=== PATIENT | female | born 1960 | race Caucasian/White ===

== ENCOUNTER → 2017-01-02 | Outpatient (CLI) | payer OTHER | LOC: FIMAGING 13:58 | DX: Z12.31 Encounter for screening mammogram for malignant neoplasm of breast (principal) | CPT/HCPCS: G0202 ==

== ENCOUNTER 2018-04-14 16:13 | Emergency (ER) | payer SELFPAY | END 2018-04-14 16:36 | disposition left against medical advice (07) | LOC: CED 16:13 | DX: Z53.21 Procedure and treatment not carried out due to patient leaving prior to being seen by health care provider (principal) ==

== ENCOUNTER → 2018-04-23 | Emergency (ER) | payer SELFPAY ==
[2018-04-23 11:16] VITALS: BP 147/53
== END | disposition left against medical advice (07) ==
DX: R30.0 Dysuria (principal)

== ENCOUNTER → 2018-07-13 | Outpatient (CLI) | payer OTHER | LOC: FIMAGING 07:57 | PROVIDERS: ATTEND Internal Medicine Gastroenterology | DX: K31.9 Disease of stomach and duodenum, unspecified (principal) ==

== ENCOUNTER → 2018-10-02 | Outpatient (CLI) | payer SELFPAY | LOC: FIMAGING 09:50 | PROVIDERS: ATTEND Internal Medicine Gastroenterology | DX: R68.81 Early satiety (principal) | CPT/HCPCS: A9541 ==